=== PATIENT | female | born 1950 | race Caucasian/White ===

== ENCOUNTER 2018-02-11 14:45 | Emergency (ER) | payer MEDICARE ==
--- NOTE | 2018-02-11 14:50 | UC ---
Hand/Wrist HPI - HPI Summary HPI Summary: 67 yo female presents with right 3rd and 4th finger pain s/p fall about 1 hour HEAD PUMPER. She tells me that she was gardening and watering her tse with her hose , when she tripped over the hose and fell on her outstretched right hand. Her 3rd and 4th fingers bent backwards. She was able to flex them at the time, but since that time has trouble flexing her 4th finger. Denies numbness, tingling, or wrist pain. - History Of Current Complaint Hx Obtained From: Patient Onset/Duration: Sudden Onset Severity Initially: Mild Severity Currently: Mild Pain Intensity: 3 Pain Scale Used: 0-10 Numeric <Jarrett Randhawa - Last Filed: 02/11/18 15:40> <Naun Moore - Last Filed: 02/11/18 17:16> - History Of Current Complaint Stated Complaint: FINGER INJURY Time Seen by Provider: 02/11/18 14:50 - Allergies/Home Medications Allergies/Adverse Reactions: Allergies Allergy/AdvReac Type Severity Reaction Status Date / Time No Known Allergies Allergy Verified 02/11/18 14:56 Home Medications: Home Medications Hydrochlorothiazide TAB* [Hydrodiuril TAB*] 02/11/18 [History] Sertraline* [Zoloft*] 02/11/18 [History] traZODone TAB* [Desyrel TAB*] 02/11/18 [History] PMH/Surg Hx/FS Hx/Imm Hx Cardiovascular History: Hypertension Psychological History: Depression - Surgical History Surgical History: None - Family History Known Family History: Positive: None - Social History Occupation: Retired Lives: With Family Alcohol Use: None Substance Use Type: None Smoking Status (MU): Never Smoked Tobacco <Jarrett Randhawa - Last Filed: 02/11/18 15:40> Review of Systems Constitutional: Negative Skin: Negative Respiratory: Negative Cardiovascular: Negative Neurovascular: Negative Musculoskeletal: Other: - Right 3rd and 4th finger pain Neurological: Negative Psychological: Negative All Other Systems Reviewed And Are Negative: Yes <Jarrett Randhawa - Last Filed: 02/11/18 15:40> Physical Exam - Summary Physical Exam Summary: GENERAL: NAD. WDWN. No pain distress. SKIN: No rashes, sores, lesions, or open wounds. NECK: Supple. Nontender. No lymphadenopathy. CHEST: No accessory muscle use. Breathing comfortably and in no distress. CV: RRR. Without m/r/g. Pulses intact radial and ulnar. MSK: Right hand: 4th finger with mild edema and ecchymosis overlying PIP. Can flex but has pain. 3rd finger FROM with mild TTP over PIP. Unable to make a fist due to pain. Right wrist: NTTP. No snuffbox tenderness. NEURO: Alert. Sensations intact hand and all fingers. PSYCH: Age appropriate behavior. 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 Suspect strain/sprain of finger. Finger splint and steven tape. F/u prn - Differential Dx/Diagnosis Provider Diagnoses: Finger sprain <Jarrett Randhawa Last Filed: 02/11/18 15:40> Discharge - Sign-Out/Discharge Documenting (check all that apply): Discharge/Admit/Transfer - Billing Disposition and Condition Condition: STABLE Disposition: Home <Jarrett Randhawa Last Filed: 02/11/18 15:40> - Billing Disposition and Condition Condition: STABLE Disposition: Home <Naun Moore - Last Filed: 02/11/18 17:16> - Discharge Plan Condition: Stable Disposition: HOME Patient Education Materials: Finger Sprain (ED) Referrals: Zac Alegre MD [Primary Care Provider] - Additional Instructions: If you develop a fever, shortness of breath, chest pain, new or worsening symptoms - please call your PCP or go to the ED. Your blood pressure was high at todays visit. Please see your primary provider within 4 weeks for recheck and re-evaluation. 1) Rest, Ice, and elevate your finger as much as possible 2) Use the finger splint for added support and protection Per institutional requirements, I have reviewed the chart, however, I was not consulted specifically or made aware of this patient by the above midlevel provider. I did not personally evaluate, interact with , or disposition this patient.
[2018-02-11 14:56] VITALS: BP 155/77
--- NOTE | 2018-02-11 15:24 | RAD ---
Indication: Pain in the third and fourth digits. 4 views of the right hand demonstrates erosive arthritis at the proximal interphalangeal joint of the fourth digit. Degenerative arthritis is noted at the proximal and distal interphalangeal joints of the other digits. 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
== END 2018-02-11 15:45 | disposition home or self-care (01) ==
LOC: UCEAST 14:45
DX: S63.619A Unspecified sprain of unspecified finger, initial encounter (principal); W01.0XXA Fall on same level from slipping, tripping and stumbling without subsequent striking against object, initial encounter; Y93.H2 Activity, gardening and landscaping; Y92.9 Unspecified place or not applicable; I10 Essential (primary) hypertension; F32.9 Major depressive disorder, single episode, unspecified
CPT/HCPCS: 99213; G0463

== ENCOUNTER 2021-08-06 16:40 | Inpatient (IN) ==
[2021-08-06] MEDS ORDERED: Lactated Ringers 1000 ml BAG 1,000 ML IV ONE (17:19)
[2021-08-06 17:56] LABS: ABS Eosinophils 0.1 10^3/ul (0-0.6); ABS Lymphocytes 1.4 10^3/ul (1.0-4.8); ABS Monocytes 0.5 10^3/ul (0-0.8); ABS Neutrophils 4.4 10^3/ul (1.5-7.7); Eosinophil % 1.1 %; Hematocrit 40 % (35-47); Hemoglobin 13.3 g/dL (12.0-16.0); Lymphocyte % 21.9 %; Mean Corpuscular HGB Conc 33 g/dL (31-36); Mean Corpuscular Hemoglobin 33 pg (27-31); Mean Corpuscular Volume 99 fL (80-97); Mean Platelet Volume 8.3 fL (7.4-10.4); Platelet Count 209 10^3/uL (150-450); Red Blood Count 4.06 10^6 /uL (3.70-4.87); Red Cell Distribution Width 15 % (10-15); Venous Bicarbonate HCO3 23.4 mmol/L (24-28); White Blood Count 6.3 10^3/uL (3.5-10.8)
[2021-08-06 18:15] LABS: ALT 41 U/L (7-52); AST 50 U/L (13-39); Albumin 4.1 g/dL (3.2-5.2); Albumin/Globulin Ratio 1.6 (1-3); Alkaline Phosphatase 129 U/L (35-149); Anion Gap 10 mmol/L (2-11); Blood Urea Nitrogen 10 mg/dL (6-24); C Reactive Protein 2.09 mg/L (<8.01); CO2 Carbon Dioxide 24 mmol/L (22-32); Calcium 8.8 mg/dL (8.6-10.3); Chloride 106 mmol/L (101-111); Globulin 2.6 g/dL (2-4); Glucose 99 mg/dL (70-100); Potassium 3.3 mmol/L (3.5-5.0); Sodium 140 mmol/L (135-145); Total Protein 6.7 g/dL (6.4-8.9); eGFR CKD-EPI 94.1 (>60)
[2021-08-06 18:17] LABS: Activated Partial Thrombo Time 26.1 seconds (26.0-38.0); INR 0.89 (0.86-1.15)
[2021-08-06 18:21] LABS: Troponin I 0.11 ng/mL (<0.03)
[2021-08-06 18:31] LABS: LDH 282 U/L (140-271)
[2021-08-06 18:51] LABS: Ferritin 249.5 ng/mL (11-307)
[2021-08-06] MEDS ORDERED: Potassium Chlor 20 meq TAB.ER PO ONE (19:59)
[2021-08-06 21:00] LABS: Troponin I 0.37 ng/mL (<0.03)
[2021-08-06] MEDS ORDERED: Enoxaparin 40 MG/0.4 ML SYR SUBCUT SCH (21:00)
[2021-08-07 05:10] LABS: Troponin I 0.73 ng/mL (<0.03)
[2021-08-07 08:11] LABS: Troponin I 0.74 ng/mL (<0.03)
[2021-08-07] MEDS ORDERED: Potassium Chloride LIQUID 20 MEQ/15 ML LIQUID PO ONE (11:29)
[2021-08-07] MEDS ORDERED: Furosemide 20 mg/2 ml IV VIAL IV STA (11:30)
[2021-08-07 11:53] LABS: Cholesterol 274 mg/dL; HDL Cholesterol 80.4 mg/dL; LDL Cholesterol 163 mg/dL; Triglycerides 152 mg/dL
[2021-08-07] MEDS: Nitro 2% OINT (Nitroglycerin) 1 INCH/PAK TOPICAL SCH (11:57)
[2021-08-07 14:09] LABS: Ferritin 209.5 ng/mL (11-307)
[2021-08-07 14:12] LABS: Folate 8.06 ng/mL (5.90-24.80)
[2021-08-07 14:13] LABS: Vitamin B12 247 pg/mL (180-914)
[2021-08-07] MEDS ORDERED: Heparin DRIP 25,000 UNITS BAG 25,000 UNITS/500 ML BAG IV SCH (17:00)
[2021-08-07] MEDS ORDERED: Heparin 5000 UNITS/ML 1 mL VIAL IV SCH (17:00)
[2021-08-07 17:15] LABS: ABS Eosinophils 0.1 10^3/ul (0-0.6); ABS Lymphocytes 1.9 10^3/ul (1.0-4.8); ABS Monocytes 0.5 10^3/ul (0-0.8); ABS Neutrophils 4.2 10^3/ul (1.5-7.7); Eosinophil % 1.1 %; Hematocrit 39 % (35-47); Hemoglobin 12.8 g/dL (12.0-16.0); Lymphocyte % 27.7 %; Mean Corpuscular HGB Conc 33 g/dL (31-36); Mean Corpuscular Hemoglobin 33 pg (27-31); Mean Corpuscular Volume 99 fL (80-97); Mean Platelet Volume 8.5 fL (7.4-10.4); Platelet Count 200 10^3/uL (150-450); Red Blood Count 3.92 10^6 /uL (3.70-4.87); Red Cell Distribution Width 15 % (10-15); White Blood Count 6.7 10^3/uL (3.5-10.8)
[2021-08-07 17:30] LABS: eGFR CKD-EPI 98.1 (>60)
[2021-08-08 05:26] LABS: ABS Eosinophils 0.1 10^3/ul (0-0.6); ABS Lymphocytes 1.5 10^3/ul (1.0-4.8); ABS Monocytes 0.5 10^3/ul (0-0.8); ABS Neutrophils 2.9 10^3/ul (1.5-7.7); Eosinophil % 1.5 %; Hematocrit 39 % (35-47); Hemoglobin 13.2 g/dL (12.0-16.0); Lymphocyte % 30.5 %; Mean Corpuscular HGB Conc 34 g/dL (31-36); Mean Corpuscular Hemoglobin 33 pg (27-31); Mean Corpuscular Volume 98 fL (80-97); Mean Platelet Volume 8.7 fL (7.4-10.4); Platelet Count 193 10^3/uL (150-450); Red Blood Count 3.98 10^6 /uL (3.70-4.87); Red Cell Distribution Width 15 % (10-15)
[2021-08-08 05:39] LABS: Potassium 3.9 mmol/L (3.5-5.0); eGFR CKD-EPI 100.5 (>60)
[2021-08-08] MEDS: Nitro 2% OINT (Nitroglycerin) 1 INCH/PAK TOPICAL SCH ×2 (06:05→14:04)
[2021-08-08] MEDS ORDERED: Midazolam 5 mg/5 ml VIAL 1 mg/ml 5 ml VIAL (5 mg) ONE (07:47)
[2021-08-08] MEDS ORDERED: VERAPAMIL 2.5 MG/ML 2 ML VIAL ** 5 mg/2 ml ONE (07:47)
[2021-08-08] MEDS ORDERED: fentaNYL 100 mcg/2 ml 50 MCG/ML VIAL ONE (07:47)
[2021-08-08] MEDS ORDERED: Lidocaine 1% VIAL 10 MG/ML VIAL ONE (07:47)
[2021-08-08] MEDS ORDERED: Heparin 1,000 UNIT/ML 10 ml (10,000 UNITS) CATHLAB/DIALYSIS ONE (07:47)
[2021-08-08] MEDS ORDERED: Iohexol 350 (CONTRAST) 200 ML MDV IV ONE ×2 (07:47→08:50)
[2021-08-08] MEDS ORDERED: nitroGLYCERIN DRIP 25,000 MCG/250 ML BTL ONE (07:47)
[2021-08-08] MEDS ORDERED: Heparin 2 UNITS/ML 1000 mls 3,000 ML IV ONE (07:47)
[2021-08-08 08:50] LABS: POC SO2 95 %
[2021-08-08 08:50] LABS: POC SO2 55 %
[2021-08-08 09:05] LABS: POC SO2 68 %
[2021-08-08 12:21] LABS: % Iron Saturation 38 % (14 - 50); Total Iron Binding Capacity 307 mcg/dL (250 - 400)
[2021-08-08 16:01] LABS: Magnesium 1.7 mg/dL (1.9-2.7)
[2021-08-09] MEDS ORDERED: Magnesium Sulfate IV 3 GM in NS 0.9% 100 ml BAG 100 ML IVPB ONE (09:00)
[2021-08-09] MEDS ORDERED: Potassium Chlor 10 meq TAB PO SCH (09:00)
[2021-08-09 12:36] VITALS: BP 135/78
== END 2021-08-09 15:00 | disposition home or self-care (01) | DRG 286 ==
LOC: ED 16:40 → EDHOLD 16:40 → SUATTDRO 19:28 → MEDTELE 23:59 → SUATTDRO 08-07 16:00
PROVIDERS: ADMIT Hospitalist; ATTEND Internal Medicine